=== PATIENT | female | born 1990 | race Caucasian/White ===

== ENCOUNTER → 2017-11-29 | Outpatient (CLI) | payer MEDICAID ==
[~2017-11-29] MED LIST: BUPR-197 PO; FERR324T4 PO; IBUP600 PO; LABE100 PO; LORA10TA7 PO; MEDR4PAK3 PO
== END ==
LOC: HPND 12:15
PROVIDERS: ATTEND Family Medicine
DX: O99.211 Obesity complicating pregnancy, first trimester (principal); E66.01 Morbid (severe) obesity due to excess calories; Z68.41 Body mass index [BMI] 40.0-44.9, adult
CPT/HCPCS: 76801

== ENCOUNTER → 2018-01-27 | Outpatient (CLI) | payer MEDICAID | LOC: HPND 10:20 | PROVIDERS: ATTEND Family Medicine | DX: O99.212 Obesity complicating pregnancy, second trimester (principal); E66.01 Morbid (severe) obesity due to excess calories; Z36.2 Encounter for other antenatal screening follow-up | CPT/HCPCS: 76811 ==

== ENCOUNTER → 2018-02-24 | Outpatient (CLI) | DX: O99.212 Obesity complicating pregnancy, second trimester (principal); E66.01 Morbid (severe) obesity due to excess calories; Z68.41 Body mass index [BMI] 40.0-44.9, adult ==

== ENCOUNTER → 2018-03-24 | Outpatient (CLI) | payer MEDICAID | LOC: HPND 09:52 | PROVIDERS: ATTEND Family Medicine | DX: O99.212 Obesity complicating pregnancy, second trimester (principal); E66.01 Morbid (severe) obesity due to excess calories; Z68.41 Body mass index [BMI] 40.0-44.9, adult | CPT/HCPCS: 76816 ==

== ENCOUNTER 2018-05-23 15:58 | Inpatient (IN) ==
[2018-05-23] MEDS ORDERED: Naloxone Inj 0.4 MG/ML Vial IV.PUSH PRN (16:50)
[2018-05-23] MEDS ORDERED: Labetalol HCl Inj 100 MG/20 ML Vial IV.PUSH PRN ×3 (16:50→17:14)
[2018-05-23] MEDS ORDERED: Mag Sulf/Water 4 gm/100 ml 100 ML IV.SIG ONE (16:50)
[2018-05-23] MEDS ORDERED: Labetalol HCl Inj 100 MG/20 ML Vial ONE (16:56)
[2018-05-23] MEDS ORDERED: Citric Acid/Sodium Citrate Liq 30 ML UDC PO SCH (17:00)
--- NOTE | 2018-05-23 17:06 | ED ---
History of Present Illness Primary Care Physician: No Primary Care Physician History of Present Illness: 27 yr G 2 p 1001 at 36 weeks and 1 day gestation with history of preeclampsia in her first that resulted in a that was sent to the ED by her primary care doctor due to hypertension and elevated protein in her urine. She has been receiving care with Dr. Helene Dey. She reports that this was complicated by gestational diabetes controlled with diet and exercise with this. Endorses good movement. She denies leakage of fluid , vaginal bleeding, vaginal discharge. . Weeks Gestation:: 36 Para: 1 : 2 Review of Systems Constitutional: Denies chills, Denies fatigue, Denies fever(s), Denies headache( s), Denies dizziness, Denies recent illness Eyes: Denies change in vision, Denies double vision, Denies blurry vision Cardiovascular: Denies chest pain, Denies fast heart rate, Denies rapid, pounding, or irregular heartbeat, Denies shortness of breath Respiratory: Denies shortness of breath Gastrointestinal: Denies abdominal pain, Denies constipation, Denies loose stools, Denies nausea, Denies vomiting Genitourinary: Denies difficulty starting urination, Denies difficulty urinating , Denies painful urination, Denies urinary frequency, Denies pelvic pain, Denies blood in urine Extremities: Endorses a 2 week history of lower extremity swelling in both legs OB: Endorses positive movement, Denies vaginal discharge or fluid Medications and Allergies Allergies Allergy/AdvReac Type Severity Reaction Status Date / Time No Known Allergies Allergy Unknown none Uncoded 05/23/18 16:33 Exam Vital signs: Vital Signs 05/23/18 16:28 Pulse Rate 125 H Blood Pressure 177/120 H Narrative: GENERAL: Well-nourished, well-developed patient. SKIN: Warm and dry. HEAD: Normocephalic and atraumatic. EYES: No scleral icterus. No injection or drainage. ENT: No nasal drainage noted. Mucous membranes pink. Airway patent. NECK: Supple, trachea midline. No JVD. CARDIOVASCULAR: Regular rate and rhythm without murmurs, gallops, or rubs. RESPIRATORY: Breath sounds equal bilaterally. No accessory muscle use. ABDOMEN/GI: Abdomen obese, soft, non-tender, bowel sounds present, no rebound, no guarding Gravid to 36 weeks size Membranes: Intact Uterine Contractions: None FHT's: Category: 1 Baseline: 140 Reactive: Yes Variability: Moderate Decels: No EXTREMITIES: 2+ pitting edema lower extremities bilaterally that extend up to just below the knees. BACK: Nontender without obvious deformity. No CVA tenderness. NEUROLOGICAL: Awake and alert. Motor and sensory grossly within normal limits. Normal speech. Results - Labs CBC & Chem 7: 05/23/18 16:55 05/23/18 16:55 Assessment and Plan - Diagnosis (1) Pre-eclampsia Code(s): O14.90 - Unspecified pre-eclampsia, unspecified trimester Status: Acute Qualifiers: Trimester: third trimester Qualified Code(s): O14.93 - Unspecified pre- eclampsia, third trimester Plan: 27 yr G 2 p 1001 at 36 weeks and 1 day gestation with history of preeclampsia in her first that resulted in a that was sent to the ED by her primary care doctor due to hypertension and elevated protein in her urine. In the ED the patient had a systolic blood pressure 177 without any severe preeclamptic features. heart tracing is reassuring. Patient currently not experiencing any contractions. -Begin magnesium sulfate -Begin labetalol -Give betamethasone -Frequent neuro checks -Frequent exam in addition of reflexes -Monitor BP -Follow-up with labs -Monitor heart tones and contractions -Routine antepartum care (2) Gestational diabetes Code(s): O24.419 - Gestational diabetes mellitus in , unspecified control Status: Acute Qualifiers: Gestational diabetes mellitus control: diet-controlled Trimester: third trimester Qualified Code(s): O24.410 - Gestational diabetes mellitus in , diet controlled Plan: Patient reports complication just diabetes during this that has been well and exercise. -Monitor her glucose -Insulin sliding scale if necessary (3) Nutrition, metabolism, and development symptoms Code(s): R63.8 - Other symptoms and signs concerning food and fluid intake Status: Acute Plan: Fluids: 150 mL/h of normal saline Electrolytes: Replete as needed Nutrition: NPO - Attending Attestation The exam, history, and the medical decision-making described in the above note were completed with the assistance of the resident physician. I reviewed and agree with the findings presented. I attest that I had a [id number] encounter with the patient on the same day, and personally performed and documented my assessment and findings in the medical record. Discharge Plan - Physicians Team ED Provider: Rocio Jordan Primary Care Provider: Primary Berta Perez
--- NOTE | 2018-05-23 17:22 | P.HPOB ---
History of Present Illness Primary Care Physician: No Primary Care Physician History of Present Illness: 27 yr G 2 p 1001 at 36 weeks and 1 day gestation with history of preeclampsia in her first that resulted in a that was sent to the ED by her primary care doctor due to hypertension and elevated protein in her urine. She has been receiving care with Dr. Helene Dey. She reports that this was complicated by gestational diabetes controlled with diet and exercise with this. Endorses good movement. She denies leakage of fluid , vaginal bleeding, vaginal discharge. OB Hx: First delivery complicated by preeclampsia by at 38 weeks PM Hx: Preeclampsia, and gestational diabetes controlled with diet and exercise , seasonal allergies Surgical Hx: Meds intact, aspirin, vitamins, Tylenol daily Family Hx: Maternal grandmother breast cancer Mother ovarian cancer, hep C, hypertension, and kidney stones Maternal aunt ovarian cancer Paternal grandfather lung cancer Paternal grandmother diabetes, breast cancer and hypertension Allergies: See general Weeks Gestation:: 36 (+1 day) Para: 1 : 2 Total # of Miscarriage(s): 0 - Inpatient Certification I certify that the inpatient services were ordered in accordance with Medicare regulations governing the order. This includes certification that hospital inpatient services are reasonable and necessary and in the case of services not specified as inpatient-only under 42 CFR 419.22(n), that they are appropriately provided as inpatient services in accordance to with the 2-midnight benchmark under 43 CFR 412.3(e) Estimated Total Length of Stay (Days): 3 Plans for Post Hospital Care: Home Review of Systems Constitutional: Denies chills, Denies fatigue, Denies fever(s), Denies headache( s), Denies dizziness, Denies recent illness Eyes: Denies change in vision, Denies double vision, Denies blurry vision Cardiovascular: Denies chest pain, Denies fast heart rate, Denies rapid, pounding, or irregular heartbeat, Denies shortness of breath Respiratory: Denies shortness of breath Gastrointestinal: Denies abdominal pain, Denies constipation, Denies loose stools, Denies nausea, Denies vomiting Genitourinary: Denies difficulty starting urination, Denies difficulty urinating , Denies painful urination, Denies urinary frequency, Denies pelvic pain, Denies blood in urine Extremities: Endorses a 2 week history of lower extremity swelling in both legs OB: Endorses positive movement, Denies vaginal discharge or fluid Medications and Allergies Allergies Allergy/AdvReac Type Severity Reaction Status Date / Time No Known Allergies Allergy Verified 05/23/18 18:53 Home Medications Medication Instructions Recorded Confirmed Type PNV cmb#95-ferrous fumarate-FA 1 tab PO DAILY 05/23/18 05/23/18 History [] aspirin [Aspirin Low Dose] 81 mg PO DAILY 05/23/18 05/23/18 History cetirizine [Zyrtec] 10 mg PO DAILY 05/23/18 05/23/18 History Active Medications: Active Medications Betamethasone Acet/Betameth SodPhos (Celestone Soluspan Inj) 12 mg IM Q24H GREG Stop: 05/24/18 17:01 Calcium Gluconate (Calcium Gluconate Inj) 1 gm IV.PUSH PRN PRN PRN Reason: Magnesium toxicity Citric Acid/Sodium Citrate (Sodium Citrate/Citric Acid Liq) 30 ml PO [employer] GREG Stop: 05/27/18 16:59 Lactated Ringer's (Lr 1000 Ml Inj) 1,000 mls @ 125 mls/hr IV.CONT .Q8H GREG Lactated Ringer's (Lr 1000 Ml Inj) 1,000 mls @ 3,000 mls/hr IV.SIG UNSCH PRN PRN Reason: compromise or epidural Lactated Ringer's (Lr 1000 Ml Inj) 1,000 mls @ 75 mls/hr IV.CONT .Q28Q30L [facility] Magnesium Sulfate (Magnesium Sulfate/Water 40 Gm/1000 Ml Premix) 40 gm in 1, 000 mls @ 50 mls/hr IV.CONT Q24H GREG Labetalol HCl (Trandate Inj) 20 mg IV.PUSH NOW PRN PRN Reason: SEE LABEL COMMENTS Labetalol HCl (Trandate Inj) 40 mg IV.PUSH NOW PRN PRN Reason: SEE LABEL COMMENTS Labetalol HCl (Trandate Inj) 80 mg IV.PUSH NOW PRN PRN Reason: SEE LABEL COMMENTS Naloxone HCl (Narcan Inj) 0.1 mg IV.PUSH Q2M PRN PRN Reason: for opiate reversal Ondansetron HCl (Zofran Inj) 4 mg IV.PUSH Q6H PRN PRN Reason: NAUSEA OR VOMITING Sodium Chloride (Ns Flush) 2 ml IV.FLUSH BID GREG Sodium Chloride (Ns Flush) 2 ml IV.FLUSH PRN PRN PRN Reason: FLUSH AFTER USING IV ACCESS Exam Vital signs: Vital Signs 05/23/18 16:28 05/23/18 16:46 Pulse Rate 125 H 112 H Blood Pressure 177/120 H 195/116 H Narrative: GENERAL: Well-nourished, well-developed patient. SKIN: Warm and dry. HEAD: Normocephalic and atraumatic. EYES: No scleral icterus. No injection or drainage. ENT: No nasal drainage noted. Mucous membranes pink. Airway patent. NECK: Supple, trachea midline. No JVD. CARDIOVASCULAR: Regular rate and rhythm without murmurs, gallops, or rubs. RESPIRATORY: Breath sounds equal bilaterally. No accessory muscle use. ABDOMEN/GI: Abdomen obese, soft, non-tender, bowel sounds present, no rebound, no guarding Gravid to 36 weeks size Membranes: Intact Uterine Contractions: None FHT's: Category: 1 Baseline: 140 Reactive: Yes Variability: Moderate Decels: No EXTREMITIES: 2+ pitting edema lower extremities bilaterally that extend up to just below the knees. BACK: Nontender without obvious deformity. No CVA tenderness. NEUROLOGICAL: Awake and alert. Motor and sensory grossly within normal limits. Normal speech. Results - Labs CBC & Chem 7: 05/23/18 16:55 05/23/18 16:55 Caprini VTE Risk Assessment Caprini VTE Risk Assessment: No/Low Risk (score <= 1) Caprini Risk Assessment Model: Point Value = 1 Point Value = 2 Point Value = 3 Point Value = 5 Age 41-60 Minor surgery BMI > 25 kg/m2 Swollen legs Varicose veins or History of unexplained or recurrent spontaneous Oral contraceptives or hormone replacement Sepsis (< 1 month) Serious lung disease, including pneumonia (< 1 month) Abnormal pulmonary function Acute myocardial infarction Congestive heart failure (< 1 month) History of inflammatory bowel disease Medical patient at bed rest Age 61-74 Arthroscopic surgery Major open surgery (> 45 min) Laparoscopic surgery (> 45 min) Malignancy Confined to bed (> 72 hours) Immobilizing plaster cast Central venous access Age >= 75 History of VTE Family history of VTE Factor V Leiden Prothrombin [id number] Lupus anticoagulant Anticardiolipin antibodies Elevated serum homocysteine Heparin-induced thrombocytopenia Other congenital or acquired thrombophilia Stroke (< 1 month) Elective arthroplasty Hip, pelvis, or leg fracture Acute spinal cord injury (< 1 month) Prophylaxis Regimen: Total Risk Factor Score Risk Level Prophylaxis Regimen 0-1 Low Early ambulation 2 Moderate Order ONE of the following: *Sequential Compression Device (SCD) *Heparin 5000 units SQ BID 3-4 Higher Order ONE of the following medications: *Heparin 5000 units SQ TID *Enoxaparin/Lovenox 40 mg SQ daily (WT < 150 kg, CrCl > 30 mL/min) *Enoxaparin/Lovenox 30 mg SQ daily (WT < 150 kg, CrCl > 10-29 mL/min) *Enoxaparin/Lovenox 30 mg SQ BID (WT < 150 kg, CrCl > 30 mL/min) AND/OR *Sequential Compression Device (SCD) 5 or more Highest Order ONE of the following medications: *Heparin 5000 units SQ TID (Preferred with Epidurals) *Enoxaparin/Lovenox 40 mg SQ daily (WT < 150 kg, CrCl > 30 mL/min) *Enoxaparin/Lovenox 30 mg SQ daily (WT < 150 kg, CrCl > 10-29 mL/min) *Enoxaparin/Lovenox 30 mg SQ BID (WT < 150 kg, CrCl > 30 mL/min) AND *Sequential Compression Device (SCD) Assessment and Plan - Diagnosis (1) Pre-eclampsia Code(s): O14.90 - Unspecified pre-eclampsia, unspecified trimester Status: Acute Plan: 27 yr G 2 p 1001 at 36 weeks and 1 day gestation with history of preeclampsia in her first that resulted in a that was sent to the ED by her primary care doctor due to hypertension and elevated protein in her urine. In the ED the patient had a systolic blood pressure 177 without any severe preeclamptic features. heart tracing is reassuring. Patient currently not experiencing any contractions. -Begin magnesium sulfate -Begin labetalol -Give betamethasone -Frequent neuro checks -Frequent exam in addition of reflexes -Monitor BP -Follow-up with labs -Monitor heart tones and contractions -Routine antepartum care (2) Gestational diabetes Code(s): O24.419 - Gestational diabetes mellitus in , unspecified control Status: Acute Plan: Patient reports complication just diabetes during this that has been well and exercise. -Monitor her glucose -Insulin sliding scale if necessary (3) Nutrition, metabolism, and development symptoms Code(s): R63.8 - Other symptoms and signs concerning food and fluid intake Status: Acute Plan: Fluids: 150 mL/h of normal saline Electrolytes: Replete as needed Nutrition: NPO - Attending Attestation The exam, history, and the medical decision-making described in the above note were completed with the assistance of the resident physician. I reviewed and agree with the findings presented. I attest that I had a [id number] encounter with the patient on the same day, and personally performed and documented my assessment and findings in the medical record. (1) Pre-eclampsia Qualifiers: Trimester: third trimester Qualified Code(s): O14.93 - Unspecified pre- eclampsia, third trimester (2) Gestational diabetes Qualifiers: Gestational diabetes mellitus control: diet-controlled Trimester: third trimester Qualified Code(s): O24.410 - Gestational diabetes mellitus in , diet controlled
[2018-05-23 17:27] LABS: Baso # (Auto) 0.1 th/mm3 (0.0-0.2); Baso % (Auto) 0.5 % (0.0-2.0); Eos % (Auto) 0.5 % (0.0-4.0); Lymph # (Auto) 1.6 th/mm3 (1.0-4.8); Lymph % (Auto) 14.9 % (9.0-44.0); Mean Corpuscular HGB Conc 34.4 % (32.0-36.0); Mean Corpuscular Hemoglobin 28.3 pg (27.0-34.0); Mean Corpuscular Volume 82.4 fL (80.0-100.0); Mean Platelet Volume 7.7 fL (7.0-11.0); Mono # (Auto) 0.8 th/mm3 (0.0-0.9); Mono % (Auto) 7.6 % (0.0-8.0); Neut # (Auto) 8.3 th/mm3 (1.8-7.7); Neut % (Auto) 76.5 % (16.0-70.0); Platelet Count 287 th/mm3 (150-450); Red Blood Count 4.24 mil/mm3 (4.00-5.30); Red Cell Distribution Width 13.5 % (11.6-17.2); White Blood Count 10.8 th/mm3 (4.0-11.0)
[2018-05-23] MEDS: Mag Sulf/Water 40 gm/1000 ml 40 GM/1,000 ML BAG IV.CONT SCH (17:40)
[2018-05-23] MEDS: Betamethasone Sod Phos/Acetate Inj 30 MG/5 ML Vial IM SCH (18:00)
[2018-05-23 18:06] LABS: Albumin 2.3 g/dL (3.4-5.0); Anion Gap 9 meq/L (5-15); Aspartate Aminotransferase 23 U/L (15-37); Blood Urea Nitrogen 11 mg/dL (7-18); Carbon Dioxide 20.1 meq/L (21.0-32.0); Chloride 112 meq/L (98-107); Glomerular Filtration Rate Greater Than 89 mL/min (>89); Glucose,Random 99 mg/dL (74-106); Potassium 4.3 meq/L (3.5-5.1); Sodium 141 meq/L (136-145)
[2018-05-23 18:10] LABS: Alanine Aminotransferase 26 U/L (10-53); Alkaline Phosphatase 163 U/L (45-117); Total Protein 6.3 g/dL (6.4-8.2); Uric Acid 5.3 mg/dl (2.6-6.0)
--- NOTE | 2018-05-23 18:32 | P.OBANTE ---
Subjective Interval History: Interval Updates: 27 year old at 36/1 with history of prior CS. She is my continuity patient with obstetrical history significant for previous C section and preE in her first as well as gestational diabetes (not on meds or insulin). She was admitted after elevated outpatient BP (150/100) and 24hr urine protein (=390 ) found on evaluation. She will remained admitted for continued management of pre-eclampsia with severe features. At home, she was on aspirin 81mg daily since approximately 17 weeks gestation with outpatient BPs increasing over the last few weeks. Since admission, patient has received a total of 140mg of labetalol IV (20mg, then 40mg, then 60mg) with SBP 136-196 since arrival. She most recently had BP of 136/80 with initiation of magnesium loading dose. She is status post first dose of betamethasone IM. Currently, patient complains of IV site pain with magnesium infusion but otherwise has no complaints. Tracing is noted to be Category 1 at this time: baseline rate 140, accels to 160s, no decels noted, moderately reactive. There are no contractions noted. Exam notable for marked edema but is otherwise unremarkable. Plan is as otherwise documented, but summarized as followed: -Admit for pre-eclampsia with severe features -Given gestational age of 36/1, hopeful to extend at least 48 but delivery timing depends on BP control, maternal status, and status -Pre-eclampsia labs ordered and CMP pending, CBC unremarkable -Magnesium gtt for neuroprotection and BP control. Protocol to include Vidal and neuro checks initiated. -Betamethasone x 2 expected (first dose 05/23) -GDM: will check fasting and 2hr postprandial if eating, CMP shows glucose 99 -NPO while on magnesium -Anticipate transition to antepartum suite tonight if BP remains controlled -Repeat labs in AM -Further planning pending clinical course Patient was discussed with Dr. Jordan, OB attending, who agrees with plan of care. Objective Vital Signs and I&O: Vital Signs 05/23/18 16:28 05/23/18 16:46 05/23/18 17:10 Pulse Rate 125 H 112 H 109 H Blood Pressure 177/120 H 195/116 H 167/97 H 05/23/18 17:16 Pulse Rate 105 H Blood Pressure 152/93 H Lab and Micro Results: Laboratory Results - last 24 hr 05/23/18 05/23/18 16:55 16:55 WBC 10.8 RBC 4.24 Hgb 12.0 Hct 35.0 MCV 82.4 MCH 28.3 MCHC 34.4 RDW 13.5 Plt Count 287 MPV 7.7 Neut % (Auto) 76.5 H Lymph % (Auto) 14.9 Coleman % (Auto) 7.6 Eos % (Auto) 0.5 Baso % (Auto) 0.5 Neut # (Auto) 8.3 H Lymph # (Auto) 1.6 Coleman # (Auto) 0.8 Eos # (Auto) 0.0 Baso # (Auto) 0.1 WBC Differential . Differential Comment Auto diff final Sodium 141 Potassium 4.3 Chloride 112 H Carbon Dioxide 20.1 L Anion Gap 9 BUN 11 Creatinine 0.70 Estimated GFR Greater than 89 Random Glucose 99 Calcium 9.0 AST 23 Albumin 2.3 L Assessment and Plan - Diagnosis (1) Pre-eclampsia Code(s): O14.90 - Unspecified pre-eclampsia, unspecified trimester Status: Acute (2) Gestational diabetes Code(s): O24.419 - Gestational diabetes mellitus in , unspecified control Status: Acute (3) Nutrition, metabolism, and development symptoms Code(s): R63.8 - Other symptoms and signs concerning food and fluid intake Status: Acute - Attending Attestation The exam, history, and the medical decision-making described in the above note were completed with the assistance of the resident physician. I reviewed and agree with the findings presented. I attest that I had a [id number] encounter with the patient on the same day, and personally performed and documented my assessment and findings in the medical record. (1) Pre-eclampsia Qualifiers: Trimester: third trimester Qualified Code(s): O14.93 - Unspecified pre- eclampsia, third trimester (2) Gestational diabetes Qualifiers: Gestational diabetes mellitus control: diet-controlled Trimester: third trimester Qualified Code(s): O24.410 - Gestational diabetes mellitus in , diet controlled
[2018-05-23] MEDS ORDERED: Acetaminophen 325 MG Supp RECTAL PRN (20:12)
[2018-05-23 20:33] LABS: Bacteria,Urine Rare /hpf; Bilirubin,Urine Negative (Negative); Calcium Oxalate Crystals,Urine Rare /hpf; Clarity,Urine Cloudy (Clear); Color,Urine Yellow (Yellw/Straw); Glucose,Urine (UA) Negative (Negative); Leukocyte Esterase,Urine Trace (Negative); Mucus,Urine Few /lpf (Occasional); Nitrite,Urine Negative (Negative); Specific Gravity,Urine 1.026 (1.002-1.035); Squamous Epithelial Cell,Urine 14 /hpf (0-5)
[2018-05-23 20:37] LABS: Amphetamine Urine With Conf Neg (Neg); Benzodiazepine Urine With Conf Neg (Neg)
[2018-05-23] MEDS ORDERED: Acetaminophen 325 MG Tablet PO PRN (21:29)
[2018-05-24] MEDS: Betamethasone Sod Phos/Acetate Inj 30 MG/5 ML Vial IM SCH ×2 (05:18→18:54)
[2018-05-24 05:55] LABS: Baso % (Auto) 0.1 % (0.0-2.0); Hematocrit 34.7 % (35.0-46.0); Hemoglobin 11.7 gm/dL (11.6-15.3); Lymph % (Auto) 7.8 % (9.0-44.0); Mean Corpuscular HGB Conc 33.9 % (32.0-36.0); Mean Corpuscular Hemoglobin 28.4 pg (27.0-34.0); Mean Corpuscular Volume 83.8 fL (80.0-100.0); Mean Platelet Volume 7.8 fL (7.0-11.0); Mono # (Auto) 0.3 th/mm3 (0.0-0.9); Mono % (Auto) 2.2 % (0.0-8.0); Neut # (Auto) 11.8 th/mm3 (1.8-7.7); Neut % (Auto) 89.9 % (16.0-70.0); Platelet Count 296 th/mm3 (150-450); Red Blood Count 4.14 mil/mm3 (4.00-5.30); Red Cell Distribution Width 13.6 % (11.6-17.2); White Blood Count 13.1 th/mm3 (4.0-11.0)
[2018-05-24 06:09] LABS: Activated Partial Thrombo Time 25.5 sec (24.3-30.1)
[2018-05-24 06:21] LABS: Alanine Aminotransferase 28 U/L (10-53); Albumin 2.3 g/dL (3.4-5.0); Alkaline Phosphatase 169 U/L (45-117); Anion Gap 11 meq/L (5-15); Aspartate Aminotransferase 17 U/L (15-37); Blood Urea Nitrogen 11 mg/dL (7-18); Calcium 8.2 mg/dL (8.5-10.1); Carbon Dioxide 18.7 meq/L (21.0-32.0); Chloride 107 meq/L (98-107); Glomerular Filtration Rate Greater Than 89 mL/min (>89); Glucose,Random 134 mg/dL (74-106); Potassium 4.5 meq/L (3.5-5.1); Sodium 137 meq/L (136-145); Total Protein 6.8 g/dL (6.4-8.2)
--- NOTE | 2018-05-24 09:49 | P.OBANTE ---
Subjective Interval History: Patient is a 27-year-old G 2 P 1 at 36 weeks and 2-day gestation who was admitted for preeclampsia and currently being treated with magnesium sulfate. Patient was seen at bedside this morning. Patient had no acute events overnight. Patient reports no bleeding or leakage of fluids and good movement. Patient currently has a Vidal catheter in place but is able to defecate without issue. Patient denies any changes in vision, dizziness, spots in visual field chest pain, shortness of breath, nausea, vomiting, fever, chills , calf pain, or new lower extremity swelling. Objective Vital Signs and I&O: Vital Signs 05/23/18 16:28 05/23/18 16:46 05/23/18 17:10 Temperature Pulse Rate 125 H 112 H 109 H Respiratory Rate Blood Pressure 177/120 H 195/116 H 167/97 H 05/23/18 17:16 05/23/18 17:30 05/23/18 18:25 Temperature Pulse Rate 105 H 107 H Respiratory Rate 19 Blood Pressure 152/93 H 170/105 H 05/23/18 18:30 05/23/18 18:55 05/23/18 19:01 Temperature 97.9 F Pulse Rate 98 H 97 H Respiratory Rate 18 Blood Pressure 147/79 H 140/80 05/23/18 19:42 05/23/18 20:15 05/23/18 20:31 Temperature Pulse Rate 95 H Respiratory Rate 20 20 Blood Pressure 145/58 H 144/77 H 05/23/18 21:15 05/23/18 21:31 05/23/18 21:45 Temperature Pulse Rate Respiratory Rate 18 18 Blood Pressure 152/87 H 05/23/18 21:55 05/23/18 22:01 05/23/18 22:16 Temperature Pulse Rate 96 H 99 H 96 H Respiratory Rate 18 Blood Pressure 152/72 H 05/23/18 22:40 05/23/18 22:41 05/23/18 23:01 Temperature 98.7 F Pulse Rate 94 H Respiratory Rate Blood Pressure 156/81 H 05/23/18 23:26 05/23/18 23:55 05/24/18 00:01 Temperature Pulse Rate 100 H Respiratory Rate 18 Blood Pressure 155/86 H 05/24/18 00:35 05/24/18 00:38 05/24/18 02:01 Temperature Pulse Rate 95 H Respiratory Rate 18 Blood Pressure 149/96 H 05/24/18 03:00 05/24/18 04:01 05/24/18 04:04 Temperature 98.4 F Pulse Rate 93 H Respiratory Rate 18 Blood Pressure 152/77 H 05/24/18 04:45 05/24/18 05:21 05/24/18 05:28 Temperature Pulse Rate 91 H 95 H Respiratory Rate 18 18 Blood Pressure 167/88 H 05/24/18 05:55 05/24/18 06:41 05/24/18 06:55 Temperature Pulse Rate 92 H 90 Respiratory Rate 18 Blood Pressure 136/77 05/24/18 07:15 05/24/18 07:16 Temperature 97.7 F Pulse Rate 96 H Respiratory Rate 17 Blood Pressure 148/91 H Intake & Output 05/23/18 05/24/18 05/24/18 18:59 06:59 18:59 Intake Total 1000 / 1000 Balance 1000 / 1000 Weight 2.438 kg Intake: IV 1000 / 1000 LR 1000 mL Inj 1,000 ML @ 75 1000 / 1000 mls/hr IV.CONT .[id number] [facility] Rx# :[id number] Other: Weight On Admission 143.335 kg Lab and Micro Results: Laboratory Results - last 24 hr 05/23/18 05/23/18 05/23/18 16:15 16:15 16:55 WBC 10.8 RBC 4.24 Hgb 12.0 Hct 35.0 MCV 82.4 MCH 28.3 MCHC 34.4 RDW 13.5 Plt Count 287 MPV 7.7 Neut % (Auto) 76.5 H Lymph % (Auto) 14.9 [place] % (Auto) 7.6 Eos % (Auto) 0.5 Baso % (Auto) 0.5 Neut # (Auto) 8.3 H Lymph # (Auto) 1.6 [place] # (Auto) 0.8 Eos # (Auto) 0.0 Baso # (Auto) 0.1 WBC Differential . Differential Comment Auto diff final PT INR APTT Sodium Potassium Chloride Carbon Dioxide Anion Gap BUN Creatinine Estimated GFR Random Glucose Uric Acid Calcium Total Bilirubin AST ALT Alkaline Phosphatase Total Protein Albumin Urine Color Yellow Urine Clarity Cloudy H Urine pH 5.0 Ur Specific Warren 1.026 Urine Protein 30 H Urine Glucose (UA) Negative Urine Ketones Negative Urine Occult Blood Negative Urine Nitrate Negative Urine Bilirubin Negative Urine Urobilinogen 2.0 H Ur Leukocyte Esterase Trace H Urine RBC 2 Urine WBC 9 H Ur Squamous Epith Cells 14 Calcium Oxalate Crystal Rare H Urine Bacteria Rare H Urine Mucus Few H Micro UA Comment Culture indicated Urine Culture Comments Culture indicated Urine Opiates Screen Neg Ur Barbiturates Screen Neg Ur Amphetamine Screen Neg U Benzodiazepines Scrn Neg Urine Cocaine Screen Neg U Cannabinoids Screen Neg Blood Type 05/23/18 05/23/18 05/23/18 16:55 16:55 16:55 WBC RBC Hgb Hct MCV MCH MCHC RDW Plt Count MPV Neut % (Auto) Lymph % (Auto) [place] % (Auto) Eos % (Auto) Baso % (Auto) Neut # (Auto) Lymph # (Auto) [place] # (Auto) Eos # (Auto) Baso # (Auto) WBC Differential Differential Comment PT Cancelled INR Cancelled APTT Cancelled Sodium 141 Potassium 4.3 Chloride 112 H Carbon Dioxide 20.1 L Anion Gap 9 BUN 11 Creatinine 0.70 Estimated GFR Greater than 89 Random Glucose 99 Uric Acid 5.3 Calcium 9.0 Total Bilirubin 0.2 AST 23 ALT 26 Alkaline Phosphatase 163 H Total Protein 6.3 L Albumin 2.3 L Urine Color Urine Clarity Urine pH Ur Specific Warren Urine Protein Urine Glucose (UA) Urine Ketones Urine Occult Blood Urine Nitrate Urine Bilirubin Urine Urobilinogen Ur Leukocyte Esterase Urine RBC Urine WBC Ur Squamous Epith Cells Calcium Oxalate Crystal Urine Bacteria Urine Mucus Micro UA Comment Urine Culture Comments Urine Opiates Screen Ur Barbiturates Screen Ur Amphetamine Screen U Benzodiazepines Scrn Urine Cocaine Screen U Cannabinoids Screen Blood Type B Positive 05/24/18 05/24/18 05/24/18 04:50 04:50 04:50 WBC 13.1 H RBC 4.14 Hgb 11.7 Hct 34.7 L MCV 83.8 MCH 28.4 MCHC 33.9 RDW 13.6 Plt Count 296 MPV 7.8 Neut % (Auto) 89.9 H Lymph % (Auto) 7.8 L [place] % (Auto) 2.2 Eos % (Auto) 0.0 Baso % (Auto) 0.1 Neut # (Auto) 11.8 H Lymph # (Auto) 1.0 [place] # (Auto) 0.3 Eos # (Auto) 0.0 Baso # (Auto) 0.0 WBC Differential . Differential Comment Auto diff final PT 10.0 INR 1.0 APTT 25.5 Sodium 137 Potassium 4.5 Chloride 107 Carbon Dioxide 18.7 L Anion Gap 11 BUN 11 Creatinine 0.67 Estimated GFR Greater than 89 Random Glucose 134 H Uric Acid Calcium 8.2 L D Total Bilirubin 0.3 AST 17 ALT 28 Alkaline Phosphatase 169 H Total Protein 6.8 Albumin 2.3 L Urine Color Urine Clarity Urine pH Ur Specific [place] Urine Protein Urine Glucose (UA) Urine Ketones Urine Occult Blood Urine Nitrate Urine Bilirubin Urine Urobilinogen Ur Leukocyte Esterase Urine RBC Urine WBC Ur Squamous Epith Cells Calcium Oxalate Crystal Urine Bacteria Urine Mucus Micro UA Comment Urine Culture Comments Urine Opiates Screen Ur Barbiturates Screen Ur Amphetamine Screen U Benzodiazepines Scrn Urine Cocaine Screen U Cannabinoids Screen Blood Type Physical Exam: GENERAL: Obese, well-developed patient. CARDIOVASCULAR: Regular rate and rhythm without murmurs, gallops, or rubs. RESPIRATORY: Breath sounds equal bilaterally. No accessory muscle use. ABDOMEN/GI: Abdomen soft, non-tender, gravid GENITOURINARY: FHT's: Category: 1 Baseline: 120 Reactive: Yes Variability: Moderate Decels: No EXTREMITIES: Patient's previously pitting edema has improved she currently has nonpitting edema that extends midway up the lower extremities bilaterally, without signs of DVT. Prepatellar reflexes 2+ on left side 1+ on right. Assessment and Plan - Diagnosis (1) Pre-eclampsia Code(s): O14.90 - Unspecified pre-eclampsia, unspecified trimester Status: Acute Plan: 27 yr G 2 p 1001 at 36 weeks and 1 day gestation with history of preeclampsia in her first that resulted in a that was sent to the ED by her primary care doctor due to hypertension and elevated protein in her urine. In the ED the patient had a systolic blood pressure 177 without any severe preeclamptic features and has been in the 140 systolic overnight. heart tracing continues to be reassuring. Patient reports "small" contractions every 20-30 minutes. -Patient to undergo in the next 1-2 days -Continue magnesium sulfate -Continue hypertensive management -Continue with next dose of betamethasone -Frequent neuro checks -Frequent exam in addition of reflexes -Monitor BP -Follow-up with labs -Monitor heart tones and contractions -Routine antepartum care (2) Gestational diabetes Code(s): O24.419 - Gestational diabetes mellitus in , unspecified control Status: Acute Plan: Patient reports complication just diabetes during this that has been well and exercise. -Monitor her glucose -Insulin sliding scale if necessary (3) Nutrition, metabolism, and development symptoms Code(s): R63.8 - Other symptoms and signs concerning food and fluid intake Status: Acute Plan: Fluids: 150 mL/h of normal saline Electrolytes: Replete as needed Nutrition: NPO (1) Pre-eclampsia Qualifiers: Trimester: third trimester Qualified Code(s): O14.93 - Unspecified pre- eclampsia, third trimester (2) Gestational diabetes Qualifiers: Gestational diabetes mellitus control: diet-controlled Trimester: third trimester Qualified Code(s): O24.410 - Gestational diabetes mellitus in , diet controlled
[2018-05-24] MEDS ORDERED: Citric Acid/Sodium Citrate Liq 30 ML UDC PO SCH (10:45)
[2018-05-24] MEDS ORDERED: ceFAZolin Inj 2,000 MG in Sodium Chlor 0.9% Inj 80 ML IV.SIG SCH (11:00)
[2018-05-24] MEDS ORDERED: Phenylephrine/NS 1000 MCG/10ML Syringe IV.PUSH ONE (12:00)
[2018-05-24] MEDS ORDERED: Ketorolac Inj 30 MG/ML (IVP) Vial IV.PUSH ONE (12:00)
[2018-05-24] MEDS: Mag Sulf/Water 40 gm/1000 ml 40 GM/1,000 ML BAG IV.CONT SCH ×2 (12:43→18:54)
[2018-05-24 12:44] LABS: Baso % (Auto) 0.1 % (0.0-2.0); Hematocrit 32.8 % (35.0-46.0); Hemoglobin 11.6 gm/dL (11.6-15.3); Lymph % (Auto) 6.9 % (9.0-44.0); Mean Corpuscular HGB Conc 35.3 % (32.0-36.0); Mean Corpuscular Hemoglobin 29.7 pg (27.0-34.0); Mean Platelet Volume 7.7 fL (7.0-11.0); Mono # (Auto) 0.3 th/mm3 (0.0-0.9); Mono % (Auto) 2.4 % (0.0-8.0); Neut # (Auto) 12.7 th/mm3 (1.8-7.7); Neut % (Auto) 90.6 % (16.0-70.0); Platelet Count 300 th/mm3 (150-450); Red Blood Count 3.91 mil/mm3 (4.00-5.30)
[2018-05-24] MEDS ORDERED: Simethicone 80 MG Chew Tablet PO PRN (14:53)
[2018-05-24] MEDS ORDERED: Oxytocin 30 Units/500ml Premix 30 UNITS/500 ML BAG IV.SIG ONE (14:53)
--- NOTE | 2018-05-24 16:24 | P.OP ---
- Preoperative Diagnosis (1) induced hypertension, antepartum (2) Previous section complicating (3) Breech presentation - Postoperative Diagnosis (1) induced hypertension, delivered, current hospitalization (2) Breech presentation (3) Previous section complicating Date of procedure: 05/24/18 Implants: Repeat low transverse section Anesthesia: spinal Surgeon: Edson Roberts MD [place] Fishing Hand: Yesi Palafox Estimated blood loss (mL): 500 IV fluids (mL): 1,000 Urine output (mL): 100 Pathology: none sent Operation and Findings: Patient is 36 week previous now for repeat section due to - induced hypertension requiring IV antihypertensives, she is a previous , the baby is in a breech presentation now. Patient was taken the operating room placed supine position operating table after adequate spinal anesthesia she is prepped and draped for abdominal surgery a pannus retractor was used to it he simply pulled back pannus to allow surgical approach the lower uterine segment area previous Pfannenstiel incision was excised out of cast way. Incision carried the fascia sharply the fascia dissected laterally off the rectus muscle. The peritoneal cavity entered sharply. The incision extended superior and inferiorly. And then the incision stretched open to allow room for baby. Visceral peritoneum mari of lower uterine segment placed on the bladder blade. A transverse hysterotomy was made extended bluntly bilaterally and copious clear fluid noted. Baby was delivered from a [place] breech presentation without difficulty. Delivery is 1:48 PM baby's weight 3035 g, Apgars 7/7 and was a male infant. Delayed cord clamping done cord blood was obtained. Placenta manually extracted uterus exteriorized all remnants of membranes forceps. The hysterotomy closed in a running layer of 0 chromic followed by imbricating suture same hemostasis achieved with a stick tie. The bladder was reapproximated with a running 3-0 Vicryl. The uterus elevated blood suctioned cul-de-sac gutters and the uterus noted to have normal ovaries and tubes. The uterus replaced the peritoneal cavity. The parietal peritoneum was grasped with hemostats and a 2-0 Vicryl used to close the parietal peritoneum. The rectus muscle reapproximated with stick ties of chromic and Vicryl. And the fascia closed in a running 0 Vicryl subcutaneous tissues closed with 3-0 catgut suture in a running stitch and the skin closed with 3-0 Monocryl subcuticular stitch. The 7 day silver dressing was then applied so that the incision under the pannus could stay dry and decrease his risk for infection. Estimate blood loss 500 cc were no complications sponge and needle correct 2 and the patient recovery in stable condition.
[2018-05-24] MEDS ORDERED: Naloxone Inj 0.4 MG/ML Vial IV.PUSH PRN ×2 (16:26→17:23)
[2018-05-24] MEDS ORDERED: Morphine Inj 30 MG/30 ML PCA.VIAL PCA PRN (16:55)
[2018-05-24] MEDS ORDERED: Labetalol HCl Inj 100 MG/20 ML Vial IV.PUSH ONE (17:40)
[2018-05-24] MEDS: Morphine Inj 30 MG/30 ML PCA.VIAL PCA PRN (17:54)
[2018-05-24] MEDS ORDERED: Oxytocin 30 Units/500ml Premix 30 UNITS/500 ML BAG IV.SIG PRN (19:53)
[2018-05-24] MEDS: ceFAZolin Inj 2,000 MG in Sodium Chlor 0.9% Inj 80 ML IV.SIG SCH (21:32)
[2018-05-25] MEDS: ceFAZolin Inj 2,000 MG in Sodium Chlor 0.9% Inj 80 ML IV.SIG SCH (05:27)
[2018-05-25 05:57] LABS: Baso % (Auto) 0.1 % (0.0-2.0); Hematocrit 30.1 % (35.0-46.0); Hemoglobin 10.1 gm/dL (11.6-15.3); Lymph # (Auto) 1.5 th/mm3 (1.0-4.8); Lymph % (Auto) 9.4 % (9.0-44.0); Mean Corpuscular HGB Conc 33.7 % (32.0-36.0); Mean Corpuscular Hemoglobin 28.4 pg (27.0-34.0); Mean Corpuscular Volume 84.3 fL (80.0-100.0); Mean Platelet Volume 7.7 fL (7.0-11.0); Mono # (Auto) 1.1 th/mm3 (0.0-0.9); Mono % (Auto) 7.1 % (0.0-8.0); Neut # (Auto) 13.2 th/mm3 (1.8-7.7); Neut % (Auto) 83.4 % (16.0-70.0); Platelet Count 262 th/mm3 (150-450); Red Blood Count 3.57 mil/mm3 (4.00-5.30); Red Cell Distribution Width 13.9 % (11.6-17.2); White Blood Count 15.8 th/mm3 (4.0-11.0)
[2018-05-25] MEDS: Morphine Inj 30 MG/30 ML PCA.VIAL PCA PRN (06:16)
[2018-05-25 06:28] LABS: Alanine Aminotransferase 33 U/L (10-53); Alkaline Phosphatase 138 U/L (45-117); Anion Gap 10 meq/L (5-15); Aspartate Aminotransferase 21 U/L (15-37); Blood Urea Nitrogen 7 mg/dL (7-18); Calcium 6.9 mg/dL (8.5-10.1); Carbon Dioxide 21.4 meq/L (21.0-32.0); Chloride 110 meq/L (98-107); Glomerular Filtration Rate Greater Than 89 mL/min (>89); Glucose,Random 140 mg/dL (74-106); Potassium 4.3 meq/L (3.5-5.1); Sodium 141 meq/L (136-145); Total Protein 5.6 g/dL (6.4-8.2)
--- NOTE | 2018-05-25 07:44 | P.PNOB ---
Subjective Post op day: 1 Interval history: 27 year old who is postoperative day #1 status post repeat low-transverse C section. Afebrile overnight. SBPs 110s-140s over the last 24 hr. Patient continues on magnesium drip at 2g/hr until 2:30p today. Patient denies pain. Incision not draining. Denies dysuria. No breast tenderness. Baby in NICU, and she has attempted pumping. Appetite good on clear liquids. No nausea or vomiting. Vidal in place, and patient has not yet had a bowel movement post- operatively. Ambulating well. Denies calf pain or shortness of breath. Otherwise, she is doing well this morning and has no other concerns. Objective Vital Signs/I&O: Vital Signs 05/24/18 09:55 05/24/18 10:01 05/24/18 11:37 Temperature 97.9 F Pulse Rate 100 H 100 H Respiratory Rate Blood Pressure 159/84 H 148/77 H 05/24/18 11:38 05/24/18 11:40 05/24/18 11:45 Temperature Pulse Rate 103 H 103 H Respiratory Rate 17 Blood Pressure 05/24/18 11:55 05/24/18 12:40 05/24/18 14:56 Temperature 97.8 F Pulse Rate 101 H 102 H 86 Respiratory Rate 17 Blood Pressure 150/83 H 131/65 05/24/18 15:15 05/24/18 15:30 05/24/18 15:45 Temperature 97.6 F Pulse Rate 89 86 85 Respiratory Rate 18 21 20 Blood Pressure 135/75 125/63 139/73 05/24/18 16:40 05/24/18 16:44 05/24/18 16:55 Temperature Pulse Rate 93 H 94 H 90 Respiratory Rate 17 Blood Pressure 156/86 H 05/24/18 17:15 05/24/18 17:36 05/24/18 17:40 Temperature Pulse Rate 95 H 95 H 94 H Respiratory Rate 18 Blood Pressure 162/77 H 05/24/18 17:55 05/24/18 18:25 05/24/18 18:45 Temperature Pulse Rate 94 H 92 H 98 H Respiratory Rate Blood Pressure 148/86 H 05/24/18 18:52 05/24/18 18:55 05/24/18 19:00 Temperature Pulse Rate 98 H 100 H 97 H Respiratory Rate 16 Blood Pressure 162/73 H 05/24/18 19:25 05/24/18 19:32 05/24/18 19:34 Temperature 98.0 F Pulse Rate 96 H 101 H Respiratory Rate 18 Blood Pressure 155/77 H 05/24/18 19:35 05/24/18 20:00 05/24/18 20:01 Temperature Pulse Rate 101 H 101 H 98 H Respiratory Rate Blood Pressure 130/73 05/24/18 20:15 05/24/18 20:30 05/24/18 20:36 Temperature Pulse Rate 100 H 99 H 103 H Respiratory Rate 18 Blood Pressure 05/24/18 20:45 05/24/18 20:50 05/24/18 21:00 Temperature Pulse Rate 103 H 99 H 110 H Respiratory Rate Blood Pressure 128/59 L 05/24/18 21:05 05/24/18 21:28 05/24/18 21:30 Temperature Pulse Rate 100 H 100 H 98 H Respiratory Rate 20 Blood Pressure 05/24/18 21:50 05/24/18 22:00 05/24/18 22:10 Temperature Pulse Rate 100 H 88 96 H Respiratory Rate Blood Pressure 132/65 05/24/18 22:20 05/24/18 22:25 05/24/18 23:05 Temperature 98.0 F Pulse Rate 105 H 97 H 102 H Respiratory Rate 18 Blood Pressure 118/57 L 05/24/18 23:55 05/25/18 00:05 05/25/18 00:16 Temperature Pulse Rate 95 H 83 85 Respiratory Rate 18 Blood Pressure 109/53 L 05/25/18 00:20 05/25/18 00:25 05/25/18 00:45 Temperature Pulse Rate 91 H 97 H 97 H Respiratory Rate Blood Pressure 05/25/18 01:20 05/25/18 01:35 05/25/18 01:50 Temperature Pulse Rate 90 82 81 Respiratory Rate Blood Pressure 112/59 L 05/25/18 01:55 05/25/18 02:00 05/25/18 03:00 Temperature Pulse Rate 92 H 89 80 Respiratory Rate 18 Blood Pressure 117/57 L 116/58 L 05/25/18 03:35 05/25/18 03:40 05/25/18 03:52 Temperature 97.7 F Pulse Rate 83 75 74 Respiratory Rate 18 Blood Pressure 05/25/18 03:55 05/25/18 05:10 05/25/18 05:25 Temperature Pulse Rate 87 71 80 Respiratory Rate Blood Pressure 116/64 135/71 05/25/18 05:28 05/25/18 05:35 05/25/18 06:05 Temperature Pulse Rate 76 78 Respiratory Rate 16 Blood Pressure 137/70 05/25/18 06:25 05/25/18 06:30 05/25/18 07:05 Temperature Pulse Rate 78 69 68 Respiratory Rate 18 Blood Pressure 142/76 H 05/25/18 07:10 Temperature Pulse Rate 81 Respiratory Rate Blood Pressure Intake & Output 05/24/18 05/25/18 05/25/18 18:59 06:59 18:59 Intake Total 1000 / 1000 100 / 100 Balance 1000 / 1000 100 / 100 Intake: IV 1000 / 1000 100 / 100 Magnesium Sulfate/Water 40 gm/ 1000 / 1000 1000 ml Premix 40 gm In 1,000 ml @ 2 GM/HR 50 mls/hr IV.CONT Q24H [facility] Rx#:[id number] Ancef Inj 2,000 MG In NS Inj 80 100 / 100 ML @ 200 mls/hr IV.SIG Q8H [facility] Rx#:[id number] Result Diagrams: 05/25/18 04:58 05/25/18 04:58 Objective Remarks: GENERAL: Well-nourished, well-developed patient. Alert and oriented. CARDIOVASCULAR: Regular rate and rhythm without murmurs, gallops, or rubs. RESPIRATORY: Breath sounds equal bilaterally. No accessory muscle use. ABDOMEN/GI: Abdomen soft, non-tender, bowel sounds present. Incision: Clean, dry and intact. Silver nitrate dressing placed 05/24 clean and dry. Fundus: Firm, non-tender at umbilicus. GENITOURINARY: Light to moderate bleeding reported. NEURO: 1+ patellar reflexes. Normal sensation and spontaneous movement of all 4 extremities. EXTREMITIES: No cyanosis or edema, non-tender, without signs of DVT. Medications and IVs: Active Medications Acetaminophen (Tylenol) 650 mg PO Q6H PRN PRN Reason: H/A Last Admin: 05/23/18 21:34 Dose: 650 mg Calcium Gluconate (Calcium Gluconate Inj) 1 gm IV.PUSH PRN PRN PRN Reason: Magnesium toxicity Citric Acid/Sodium Citrate (Sodium Citrate/Citric Acid Liq) 30 ml PO EGG SETTER [facility] Stop: 05/27/18 16:59 Last Admin: 05/24/18 12:43 Dose: 30 ml Citric Acid/Sodium Citrate (Sodium Citrate/Citric Acid Liq) 30 ml PO EGG SETTER [facility] Stop: 05/28/18 10:44 Diphenhydramine HCl (Benadryl Inj) 25 mg IV.PUSH Q6H PRN PRN Reason: MILD TO MODERATE ITCHING Stop: 05/25/18 16:25 Diphenhydramine HCl (Benadryl) 50 mg PO Q6H PRN PRN Reason: MILD TO MODERATE ITCHING Stop: 05/25/18 16:25 Diphtheria/Pertussis/Tetanus Vacc (Boostrix Vaccine Inj) 0.5 ml IM .ONCE ONE Stop: 05/25/18 16:01 Magnesium Sulfate (Magnesium Sulfate/Water 40 Gm/1000 Ml Premix) 40 gm in 1, 000 mls @ 50 mls/hr IV.CONT Q24H [facility] Last Admin: 05/24/18 18:54 Dose: Not Given Cefazolin Sodium 2,000 mg/ (Sodium Chloride) 100 mls @ 200 mls/hr IV.SIG EGG SETTER [facility] Stop: 05/28/18 10:59 Lactated Ringer's (Lr 1000 Ml Inj) 1,000 mls @ 100 mls/hr IV.CONT .Q10H [facility] Stop: 05/25/18 15:52 Last Admin: 05/25/18 00:23 Dose: 75 mls/hr Oxytocin (Pitocin 30 Units/Ns 500 Ml Premix) 30 units in 500 mls @ 100 mls/hr IV.SIG PRN PRN PRN Reason: Heavy bleeding Stop: 05/25/18 19:52 Morphine Sulfate (Morphine Inj) 30 mg in 30 mls @ 0 mls/hr PRISONER CLASSIFICATION INTERVIEWER UNSCH PRN PRN Reason: per PRISONER CLASSIFICATION INTERVIEWER parameters/ABD.PAIN Last Admin: 05/25/18 06:16 Dose: 0 mls/hr Ketorolac Tromethamine (Toradol Inj) 30 mg IM Q6H PRN PRN Reason: SEE LABEL COMMENTS Stop: 05/29/18 14:52 Labetalol HCl (Trandate Inj) 40 mg IV.PUSH NOW PRN PRN Reason: SEE LABEL COMMENTS Measles/Mumps/Rubella Vaccine Live (M-M-R Ii Vaccine Inj) 0.5 ml SQ .ONCE ONE Stop: 05/25/18 16:01 Miscellaneous Information ([facility] [facility] 1 each OTHER UNSCH PRN PRN Reason: SEE LABEL COMMENTS Stop: 05/25/18 16:25 Miscellaneous Information ([facility] 1 each OTHER UNSCH PRN PRN Reason: SEE LABEL COMMENTS Stop: 05/25/18 16:25 Naloxone HCl (Narcan Inj) 0.1 mg IV.PUSH Q2M PRN PRN Reason: for opiate reversal Naloxone HCl (Narcan Inj) 0.4 mg IV.PUSH UNSCH PRN PRN Reason: SEE LABEL COMMENTS Stop: 05/25/18 16:25 Naloxone HCl (Narcan Inj) 0.4 mg IV.PUSH PRN PRN PRN Reason: Resp rate < 10 Ondansetron HCl (Zofran Inj) 4 mg IV.PUSH Q6H PRN PRN Reason: NAUSEA OR VOMITING Oxycodone/Acetaminophen (Percocet 5/325 Mg) 1 tab PO Q4H PRN PRN Reason: PAIN SCALE 3 TO 5 Oxycodone/Acetaminophen (Percocet 5/325 Mg) 2 tab PO Q4H PRN PRN Reason: PAIN SCALE 6 TO 10 Senna/Docusate Sodium (Lata-Colace) 2 tab PO Q12H PRN PRN Reason: CONSTIPATION Simethicone (Mylicon Chew) 80 mg PO QID PRN PRN Reason: FLATULENCE Sodium Chloride (Ns Flush) 2 ml IV.FLUSH BID GREG Last Admin: 05/24/18 21:33 Dose: Not Given Sodium Chloride (Ns Flush) 2 ml IV.FLUSH PRN PRN PRN Reason: FLUSH AFTER USING IV ACCESS Assessment and Plan - Diagnosis (1) delivery due to maternal disorder, delivered, current hospitalization Code(s): O82 - Encounter for delivery without indication; O99.89 - Other specified diseases and conditions complicating , childbirth and the puerperium Status: Acute Plan: 27 year old who is POD# 1 s/p repeat CS. -Continue routine postoperative care. -Percocet and Motrin PRN pain. -Encouraged OOB. Advised pelvic rest for 6 wks. Will need a f/u appt. in 1 wk for incision check and BP check. -Re: ctrl, she would like to consider options, to include vasectomy for her . -Anticipate discharge 2-3 days. (2) Pre-eclampsia Code(s): O14.90 - Unspecified pre-eclampsia, unspecified trimester Status: Acute Plan: Patient presented with signs of severe pre-eclampsia and was admitted for management at 36/1 weeks gestation. She was delivered at 36/2 weeks due to persistently elevated BP despite IV magnesium and IV antihypertensives. She is status post uncomplicated section. -Continue Magnesium drip until 2:30p on 05/25. She required labetalol IV prior to delivery. -Monitor BP closely, q4hr until stable >24hr -Discussed with patient possibility of PO antihypertensives at discharge Clinical History: She was admitted after elevated outpatient BP (150/100) and 24hr urine protein ( =390) found on evaluation. At home, she was on aspirin 81mg daily since approximately 17 weeks gestation with outpatient BPs increasing over the last few weeks. Betamethasone x 1 05/23 Plan is as otherwise documented. Further planning pending clinical course. Patient was discussed with Dr. Roberts, OB attending (3) Gestational diabetes Code(s): O24.419 - Gestational diabetes mellitus in , unspecified control Status: Acute Plan: Diet controlled GDM noted. She is on clear liquids until completion of magnesium at 2:30pm, then can switch to appropriate diet. If AM CMP wnl, not indicated to check blood sugar at bedside but if abnormal would be indicated to monitor fasting and 2hr postprandial glucose levels. (4) Nutrition, metabolism, and development symptoms Code(s): R63.8 - Other symptoms and signs concerning food and fluid intake Status: Acute Plan: Fluids: per protocol. Intake and output adequate per pt, will monitor records. Electrolytes: Replete as needed Nutrition: NPO (2) Pre-eclampsia Qualifiers: Trimester: third trimester Qualified Code(s): O14.93 - Unspecified pre- eclampsia, third trimester (3) Gestational diabetes Qualifiers: Gestational diabetes mellitus control: diet-controlled Trimester: third trimester Qualified Code(s): O24.410 - Gestational diabetes mellitus in , diet controlled
[2018-05-25] MEDS: Mag Sulf/Water 40 gm/1000 ml 40 GM/1,000 ML BAG IV.CONT SCH (10:00)
[2018-05-25] MEDS: Labetalol 200 MG Tablet PO SCH ×2 (12:55→20:50)
[2018-05-25] MEDS ORDERED: Diphtheria/Tetanus/Pertussis Vaccine Inj 0.5 ML Syringe IM ONE (16:00)
[2018-05-25] MEDS ORDERED: Measles/Mumps/Rubella Vaccine Inj 0.5 ML Vial SQ ONE (16:00)
[2018-05-25] MEDS: Senna/Docusate Sodium 8.6/50 MG Tablet PO PRN (20:50)
--- NOTE | 2018-05-26 10:13 | P.PNOB ---
Subjective Post op day: 2 Interval history: 27 year old with a history of preeclampsia who is postoperative day 2 after repeat low-transverse C section. Afebrile overnight but hypertensive with blood pressures ranging from 170s systolic to high 150s systolic and is currently on labetalol as needed and has scheduled dose. Patient denies any visual changes, headaches, or dizziness. She reports she otherwise feels "normal". Patient is also status post magnesium drip and completed a course yesterday at 1430. Patient denies pain. Incision not draining. Denies dysuria. No nausea or vomiting, fevers, or chills. Ambulating well. Denies calf pain, shortness of breath, or chest pain. Otherwise, she is doing well this morning and has no other concerns. Objective Vital Signs/I&O: Vital Signs 05/25/18 10:10 05/25/18 10:15 05/25/18 10:20 Temperature Pulse Rate 85 91 H 85 Respiratory Rate Blood Pressure 157/90 H 05/25/18 10:55 05/25/18 11:00 05/25/18 11:05 Temperature Pulse Rate 88 78 Respiratory Rate 19 Blood Pressure 148/81 H 05/25/18 11:30 05/25/18 12:00 05/25/18 12:20 Temperature 97.9 F Pulse Rate 73 92 H 82 Respiratory Rate Blood Pressure 155/81 H 05/25/18 12:50 05/25/18 13:00 05/25/18 13:05 Temperature Pulse Rate 87 89 Respiratory Rate 18 Blood Pressure 151/91 H 05/25/18 13:15 05/25/18 13:20 05/25/18 13:40 Temperature Pulse Rate 100 H 86 84 Respiratory Rate Blood Pressure 05/25/18 14:02 05/25/18 14:47 05/25/18 15:01 Temperature Pulse Rate 81 77 Respiratory Rate 17 Blood Pressure 150/84 H 152/86 H 05/25/18 15:35 05/25/18 17:28 05/25/18 18:15 Temperature Pulse Rate 90 87 Respiratory Rate 18 16 Blood Pressure 154/89 H 163/88 H 158/83 H 05/25/18 20:00 05/26/18 00:00 05/26/18 04:00 Temperature 98.0 F 98.2 F 98.2 F Pulse Rate 76 96 H 101 H Respiratory Rate 20 20 22 Blood Pressure 145/76 H 140/72 170/91 H 05/26/18 05:00 05/26/18 05:54 05/26/18 07:40 Temperature 98.3 F Pulse Rate 91 H 76 97 H Respiratory Rate 18 18 Blood Pressure 162/79 H 157/80 H 163/96 H 05/26/18 07:55 05/26/18 08:05 05/26/18 08:06 Temperature 98.0 F Pulse Rate 87 Respiratory Rate 20 Blood Pressure 166/97 H 159/95 H 05/26/18 08:40 05/26/18 09:46 Temperature Pulse Rate Respiratory Rate Blood Pressure 176/86 H 164/92 H Intake & Output 05/25/18 05/26/18 05/26/18 18:59 06:59 18:59 Intake Total 1000 / 1000 Balance 1000 / 1000 Intake: IV 1000 / 1000 Magnesium Sulfate/Water 40 gm/ 1000 / 1000 1000 ml Premix 40 gm In 1,000 ml @ 2 GM/HR 50 mls/hr IV.CONT Q24H [facility] Rx#:[id number] Result Diagrams: 05/25/18 04:58 05/25/18 04:58 Objective Remarks: GENERAL: Well-nourished, morbidly obese, well-developed patient. CARDIOVASCULAR: Regular rate and rhythm without murmurs, gallops, or rubs. RESPIRATORY: Breath sounds equal bilaterally. No accessory muscle use. ABDOMEN/GI: Abdomen soft, non-tender, bowel sounds present. Incision: Clean, dry and intact. Fundus: Firm, non-tender at umbilicus. GENITOURINARY: Light to moderate bleeding. EXTREMITIES: No cyanosis or edema, non-tender, without signs of DVT. Medications and IVs: Active Medications Acetaminophen (Tylenol) 650 mg PO Q6H PRN PRN Reason: H/A Last Admin: 05/23/18 21:34 Dose: 650 mg Calcium Gluconate (Calcium Gluconate Inj) 1 gm IV.PUSH PRN PRN PRN Reason: Magnesium toxicity Citric Acid/Sodium Citrate (Sodium Citrate/Citric Acid Liq) 30 ml PO SCAFFOLDER [facility] Stop: 05/27/18 16:59 Last Admin: 05/24/18 12:43 Dose: 30 ml Citric Acid/Sodium Citrate (Sodium Citrate/Citric Acid Liq) 30 ml PO SCAFFOLDER [facility] Stop: 05/28/18 10:44 Cefazolin Sodium 2,000 mg/ (Sodium Chloride) 100 mls @ 200 mls/hr IV.SIG SCAFFOLDER [facility] Stop: 05/28/18 10:59 Ketorolac Tromethamine (Toradol Inj) 30 mg IM Q6H PRN PRN Reason: SEE LABEL COMMENTS Stop: 05/29/18 14:52 Labetalol HCl (Trandate) 300 mg PO BID [facility] Last Admin: 05/26/18 09:54 Dose: 300 mg Miscellaneous (Pill Splitter) 1 each OTHER UNSCH PRN PRN Reason: SEE LABEL COMMENTS Naloxone HCl (Narcan Inj) 0.1 mg IV.PUSH Q2M PRN PRN Reason: for opiate reversal Naloxone HCl (Narcan Inj) 0.4 mg IV.PUSH PRN PRN PRN Reason: Resp rate < 10 Ondansetron HCl (Zofran Inj) 4 mg IV.PUSH Q6H PRN PRN Reason: NAUSEA OR VOMITING Oxycodone/Acetaminophen (Percocet 5/325 Mg) 1 tab PO Q4H PRN PRN Reason: PAIN SCALE 3 TO 5 Oxycodone/Acetaminophen (Percocet 5/325 Mg) 2 tab PO Q4H PRN PRN Reason: PAIN SCALE 6 TO 10 Last Admin: 05/26/18 08:10 Dose: 2 tab Senna/Docusate Sodium (Lata-Colace) 2 tab PO Q12H PRN PRN Reason: CONSTIPATION Last Admin: 05/25/18 20:50 Dose: 2 tab Simethicone (Mylicon Chew) 80 mg PO QID PRN PRN Reason: FLATULENCE Sodium Chloride (Ns Flush) 2 ml IV.FLUSH BID [facility] Last Admin: 05/26/18 08:12 Dose: 2 ml Sodium Chloride (Ns Flush) 2 ml IV.FLUSH PRN PRN PRN Reason: FLUSH AFTER USING IV ACCESS Assessment and Plan - Diagnosis (1) delivery due to maternal disorder, delivered, current hospitalization Code(s): O82 - Encounter for delivery without indication; O99.89 - Other specified diseases and conditions complicating , childbirth and the puerperium Status: Acute Plan: 27 year old who is POD2 s/p repeat CS. -Continue routine postoperative care. -Percocet and Motrin PRN pain. -Encouraged OOB. Advised pelvic rest for 6 wks. Will need a f/u appt. in 1 wk for incision check and BP check. -Re: ctrl, she would like to consider options, to include vasectomy for her . -Anticipate discharge after blood pressure is well controlled in about 1-2 days. (2) Pre-eclampsia Code(s): O14.90 - Unspecified pre-eclampsia, unspecified trimester Status: Acute Plan: Patient presented with signs of severe pre-eclampsia and was admitted for management at 36/1 weeks gestation. She was delivered at 36/2 weeks due to persistently elevated BP despite IV magnesium and IV antihypertensives. She is status post uncomplicated section and her IV magnesium course has been completed as of yesterday. Patient still currently hypertensive with systolic blood pressures in the 170s overnight low systolic blood pressure was 157. -Continue labetalol 300 twice daily, and 40 as needed -Monitor BP closely, q4hr until stable >24hr -Discussed with patient possibility of PO antihypertensives at discharge Clinical History: She was admitted after elevated outpatient BP (150/100) and 24hr urine protein ( =390) found on evaluation. At home, she was on aspirin 81mg daily since approximately 17 weeks gestation with outpatient BPs increasing over the last few weeks. Plan is as otherwise documented. Further planning pending clinical course. Patient was discussed with Dr. Roberts, OB attending (3) Gestational diabetes Code(s): O24.419 - Gestational diabetes mellitus in , unspecified control Status: Acute Plan: Diet controlled GDM noted. Blood glucose level was found to be 140 yesterday morning patient to have 2 hour postprandial glucose checked. (4) Nutrition, metabolism, and development symptoms Code(s): R63.8 - Other symptoms and signs concerning food and fluid intake Status: Acute Plan: Fluids: per protocol. Intake and output adequate per pt, will monitor records. Electrolytes: Replete as needed Nutrition: Regular diet - Attending Attestation The exam, history, and the medical decision-making described in the above note were completed with the assistance of the resident physician. I reviewed and agree with the findings presented. I attest that I had a [id number] encounter with the patient on the same day, and personally performed and documented my assessment and findings in the medical record. (2) Pre-eclampsia Qualifiers: Trimester: third trimester Qualified Code(s): O14.93 - Unspecified pre- eclampsia, third trimester (3) Gestational diabetes Qualifiers: Gestational diabetes mellitus control: diet-controlled Trimester: third trimester Qualified Code(s): O24.410 - Gestational diabetes mellitus in , diet controlled
[2018-05-26] MEDS: Senna/Docusate Sodium 8.6/50 MG Tablet PO PRN (13:38)
[2018-05-26] MEDS: Ibuprofen 600 MG Tablet PO PRN (21:17)
[2018-05-27] MEDS ORDERED: Labetalol HCl Inj 100 MG/20 ML Vial IV.PUSH SCH (04:00)
[2018-05-27] MEDS ORDERED: hydrALAZINE 25 MG Tablet PO SCH ×2 (04:00→06:00)
--- NOTE | 2018-05-27 10:43 | P.PNOB ---
Subjective Interval history: 27 year old with a history of preeclampsia who is postoperative day 3 after repeat low-transverse C section. Afebrile overnight but hypertensive with blood pressures ranging from 190s systolic to high 150s systolic. Overnight patient received hydralazine 25 at 04 100 and then again at 0600 this morning. Despite elevated pressures patient has and continues to be asymptomatic, denying any headaches, dizziness, or changes in vision. Patient was previously on labetalol but has since been switched to hydralazine 50 every 8 hours. Last blood pressure at 9 this morning was 168/90. She reports she otherwise feels "normal". Patient is also status post magnesium trip to complete his course on 05/25. Patient denies pain. Incision not draining. Denies dysuria. No nausea or vomiting, fevers, or chills. Ambulating well. Denies calf pain, abdominal pain , right upper quadrant pain shortness of breath, or chest pain. Otherwise, she is doing well this morning and has no other concerns. Objective Vital Signs/I&O: Vital Signs 05/26/18 11:00 05/26/18 12:00 05/26/18 14:25 Temperature Pulse Rate 95 H Respiratory Rate Blood Pressure 166/90 H 168/90 H 158/86 H 05/26/18 16:19 05/26/18 19:48 05/27/18 00:00 Temperature 98.4 F 98.5 F Pulse Rate 90 90 96 H Respiratory Rate 18 18 Blood Pressure 156/79 H 159/81 H 143/72 H 05/27/18 03:47 05/27/18 04:49 05/27/18 08:00 Temperature 98.8 F 98.1 F Pulse Rate 96 H 96 H 103 H Respiratory Rate 18 18 Blood Pressure 191/90 H 157/80 H 159/87 H Result Diagrams: 05/25/18 04:58 05/25/18 04:58 Objective Remarks: GENERAL: Well-nourished, well-developed patient. CARDIOVASCULAR: Regular rate and rhythm without murmurs, gallops, or rubs. RESPIRATORY: Breath sounds equal bilaterally. No accessory muscle use. ABDOMEN/GI: Abdomen soft, non-tender, nontender and right upper quadrant, bowel sounds present. Incision: Clean, dry and intact. Fundus: Firm, non-tender at umbilicus. EXTREMITIES: No cyanosis or edema, non-tender, without signs of DVT. Medications and IVs: Active Medications Acetaminophen (Tylenol) 650 mg PO Q6H PRN PRN Reason: H/A Last Admin: 05/23/18 21:34 Dose: 650 mg Calcium Gluconate (Calcium Gluconate Inj) 1 gm IV.PUSH PRN PRN PRN Reason: Magnesium toxicity Citric Acid/Sodium Citrate (Sodium Citrate/Citric Acid Liq) 30 ml PO [employer] [facility] Stop: 05/27/18 16:59 Last Admin: 05/24/18 12:43 Dose: 30 ml Citric Acid/Sodium Citrate (Sodium Citrate/Citric Acid Liq) 30 ml PO [employer] [facility] Stop: 05/28/18 10:44 Hydralazine HCl (Apresoline) 50 mg PO Q8HR [facility] Cefazolin Sodium 2,000 mg/ (Sodium Chloride) 100 mls @ 200 mls/hr IV.SIG [employer] [facility] Stop: 05/28/18 10:59 Ibuprofen (Motrin) 600 mg PO Q6H PRN PRN Reason: CRAMPS Last Admin: 05/26/18 21:17 Dose: 600 mg Ketorolac Tromethamine (Toradol Inj) 30 mg IM Q6H PRN PRN Reason: SEE LABEL COMMENTS Stop: 05/29/18 14:52 Miscellaneous (Pill Splitter) 1 each OTHER UNSCH PRN PRN Reason: SEE LABEL COMMENTS Naloxone HCl (Narcan Inj) 0.1 mg IV.PUSH Q2M PRN PRN Reason: for opiate reversal Naloxone HCl (Narcan Inj) 0.4 mg IV.PUSH PRN PRN PRN Reason: Resp rate < 10 Ondansetron HCl (Zofran Inj) 4 mg IV.PUSH Q6H PRN PRN Reason: NAUSEA OR VOMITING Oxycodone/Acetaminophen (Percocet 5/325 Mg) 1 tab PO Q4H PRN PRN Reason: PAIN SCALE 3 TO 5 Oxycodone/Acetaminophen (Percocet 5/325 Mg) 2 tab PO Q4H PRN PRN Reason: PAIN SCALE 6 TO 10 Last Admin: 05/26/18 20:16 Dose: 2 tab Senna/Docusate Sodium (Lata-Colace) 2 tab PO Q12H PRN PRN Reason: CONSTIPATION Last Admin: 05/26/18 13:38 Dose: 2 tab Simethicone (Mylicon Chew) 80 mg PO QID PRN PRN Reason: FLATULENCE Sodium Chloride (Ns Flush) 2 ml IV.FLUSH BID [facility] Last Admin: 05/26/18 21:33 Dose: 2 ml Sodium Chloride (Ns Flush) 2 ml IV.FLUSH PRN PRN PRN Reason: FLUSH AFTER USING IV ACCESS Assessment and Plan - Diagnosis (1) Pre-eclampsia Code(s): O14.90 - Unspecified pre-eclampsia, unspecified trimester Status: Acute Plan: Patient presented with signs of severe pre-eclampsia and was admitted for management at 36/1 weeks gestation. She was delivered on 05/24/18 at 36/2 weeks due to persistently elevated BP despite IV magnesium and IV antihypertensives. She is status post uncomplicated section and her IV magnesium course has been completed as of 05/25. Patient still currently hypertensive with systolic blood pressures in the 190s overnight. Lowest systolic blood pressure was 143 at midnight. Patient previously on labetalol 300 3 times daily, now on hydralazine 50 every 8. Despite elevated pressures patient continues to be asymptomatic. If safe for breast-feeding , lisinopril may be considered due to the patient's diabetic status. -Hydralazine 50 every 8 hour -Consider lisinopril due to patient's diabetic status -Monitor BP closely, q4hr until stable >24hr -Discussed with patient possibility of PO antihypertensives at discharge Clinical History: She was admitted after elevated outpatient BP (150/100) and 24hr urine protein ( =390) found on evaluation. At home, she was on aspirin 81mg daily since approximately 17 weeks gestation with outpatient BPs increasing over the last few weeks. Plan is as otherwise documented. Further planning pending clinical course. Patient was discussed with Dr. Roberts, OB attending (2) delivery due to maternal disorder, delivered, current hospitalization Code(s): O82 - Encounter for delivery without indication; O99.89 - Other specified diseases and conditions complicating , childbirth and the puerperium Status: Acute Plan: 27 year old who is POD2 s/p repeat CS. Incision is clean, intact, and without signs of infection. -Continue routine postoperative care. -Motrin PRN pain. -Encouraged OOB. Advised pelvic rest for 6 wks. Will need a f/u appt. in 1 wk for incision check and BP check. -Re: ctrl, she would like to consider options, to include vasectomy for her . -Anticipate discharge after blood pressure is well controlled in about 1-2 days. (3) Gestational diabetes Code(s): O24.419 - Gestational diabetes mellitus in , unspecified control Status: Acute Plan: Diet controlled GDM noted. Blood glucose level was found to be 140 yesterday morning patient to have 2 hour postprandial glucose checked. (4) Nutrition, metabolism, and development symptoms Code(s): R63.8 - Other symptoms and signs concerning food and fluid intake Status: Acute Plan: Fluids: per protocol. Intake and output adequate per pt, will monitor records. Electrolytes: Replete as needed Nutrition: Regular diet (1) Pre-eclampsia Qualifiers: Trimester: third trimester Qualified Code(s): O14.93 - Unspecified pre- eclampsia, third trimester (3) Gestational diabetes Qualifiers: Gestational diabetes mellitus control: diet-controlled Trimester: third trimester Qualified Code(s): O24.410 - Gestational diabetes mellitus in , diet controlled
[2018-05-27] MEDS ORDERED: NIFEdipine 10 MG Capsule PO SCH (10:45)
[2018-05-27] MEDS: Ibuprofen 600 MG Tablet PO PRN ×2 (10:57→23:08)
[2018-05-27] MEDS: Senna/Docusate Sodium 8.6/50 MG Tablet PO PRN (10:58)
[2018-05-27] MEDS ORDERED: *Labetalol HCl Inj 100 MG/20 ML Vial PERIprocedural Use ONLY IV.PUSH ONE (12:56)
[2018-05-27] MEDS: hydrALAZINE 50 MG Tablet PO SCH ×2 (13:50→22:11)
[2018-05-27] MEDS ORDERED: Labetalol 200 MG Tablet PO ONE (18:00)
[2018-05-28] MEDS: hydrALAZINE 50 MG Tablet PO SCH ×2 (06:25→14:40)
[2018-05-28 08:00] VITALS: RESP 16
[2018-05-28 08:01] VITALS: TEMP 98
--- NOTE | 2018-05-28 09:19 | P.PNOB ---
Subjective Interval history: 27 year old with a history of preeclampsia who is postoperative day 4 after repeat low-transverse C section. Afebrile overnight but hypertensive with blood pressures ranging from low 140s systolic to high 160s systolic. Patient currently on labetalol 400 3 times daily and hydralazine 50 every 8 and tolerating it well. Patient's blood pressures continue to normalize despite elevated pressures patient has and continues to be asymptomatic, denying any headaches, dizziness, or changes in vision. Patient was previously on labetalol but has since been switched to hydralazine 50 every 8 hours. Last blood pressure at 9 this morning was 168/90. She reports she otherwise feels "normal". Patient is also status post magnesium trip to complete his course on 05/25. Patient denies pain. Incision not draining. Denies dysuria. No nausea or vomiting, fevers, or chills. Ambulating well. Denies calf pain, abdominal pain , right upper quadrant pain shortness of breath, or chest pain. Otherwise, she is doing well this morning and has no other concerns. Objective Vital Signs/I&O: Vital Signs 05/27/18 12:00 05/27/18 13:48 05/27/18 16:10 Temperature Pulse Rate 109 H 88 103 H Respiratory Rate 20 Blood Pressure 180/98 H 145/79 H 183/89 H 05/27/18 20:00 05/27/18 22:00 05/28/18 00:00 Temperature 98.6 F 98.3 F Pulse Rate 97 H 96 H 101 H Respiratory Rate 20 20 Blood Pressure 138/73 142/90 H 153/76 H 05/28/18 02:00 05/28/18 02:57 05/28/18 04:00 Temperature Pulse Rate 93 H 81 86 Respiratory Rate 18 19 Blood Pressure 167/88 H 142/74 H 147/87 H 05/28/18 06:17 05/28/18 07:59 Temperature 97.9 F 98.0 F Pulse Rate 89 101 H Respiratory Rate 20 16 Blood Pressure 140/83 149/81 H Result Diagrams: 05/25/18 04:58 05/25/18 04:58 Objective Remarks: GENERAL: Well-nourished, well-developed patient. CARDIOVASCULAR: Regular rate and rhythm without murmurs, gallops, or rubs. RESPIRATORY: Breath sounds equal bilaterally. No accessory muscle use. ABDOMEN/GI: Abdomen soft, non-tender, bowel sounds present. Incision: Clean, dry and intact. Fundus: Firm, non-tender at umbilicus. GENITOURINARY: Light to moderate bleeding. EXTREMITIES: No cyanosis or edema, non-tender, without signs of DVT. Medications and IVs: Active Medications Acetaminophen (Tylenol) 650 mg PO Q6H PRN PRN Reason: H/A Last Admin: 05/23/18 21:34 Dose: 650 mg Calcium Gluconate (Calcium Gluconate Inj) 1 gm IV.PUSH PRN PRN PRN Reason: Magnesium toxicity Citric Acid/Sodium Citrate (Sodium Citrate/Citric Acid Liq) 30 ml PO [employer] [facility] Stop: 05/28/18 10:44 Hydralazine HCl (Apresoline) 50 mg PO Q8HR [facility] Last Admin: 05/28/18 06:25 Dose: 50 mg Cefazolin Sodium 2,000 mg/ (Sodium Chloride) 100 mls @ 200 mls/hr IV.SIG [employer] [facility] Stop: 05/28/18 10:59 Ibuprofen (Motrin) 600 mg PO Q6H PRN PRN Reason: CRAMPS Last Admin: 05/27/18 23:08 Dose: 600 mg Ketorolac Tromethamine (Toradol Inj) 30 mg IM Q6H PRN PRN Reason: SEE LABEL COMMENTS Stop: 05/29/18 14:52 Labetalol HCl (Trandate) 400 mg PO TID [facility] Miscellaneous (Pill Splitter) 1 each OTHER UNSCH PRN PRN Reason: SEE LABEL COMMENTS Last Admin: 05/27/18 17:59 Dose: 1 each Naloxone HCl (Narcan Inj) 0.1 mg IV.PUSH Q2M PRN PRN Reason: for opiate reversal Naloxone HCl (Narcan Inj) 0.4 mg IV.PUSH PRN PRN PRN Reason: Resp rate < 10 Ondansetron HCl (Zofran Inj) 4 mg IV.PUSH Q6H PRN PRN Reason: NAUSEA OR VOMITING Oxycodone/Acetaminophen (Percocet 5/325 Mg) 1 tab PO Q4H PRN PRN Reason: PAIN SCALE 3 TO 5 Last Admin: 05/27/18 23:08 Dose: 1 tab Oxycodone/Acetaminophen (Percocet 5/325 Mg) 2 tab PO Q4H PRN PRN Reason: PAIN SCALE 6 TO 10 Last Admin: 05/27/18 10:57 Dose: 2 tab Senna/Docusate Sodium (Lata-Colace) 2 tab PO Q12H PRN PRN Reason: CONSTIPATION Last Admin: 05/27/18 10:58 Dose: 2 tab Simethicone (Mylicon Chew) 80 mg PO QID PRN PRN Reason: FLATULENCE Sodium Chloride (Ns Flush) 2 ml IV.FLUSH BID [facility] Last Admin: 05/28/18 03:23 Dose: 2 ml Sodium Chloride (Ns Flush) 2 ml IV.FLUSH PRN PRN PRN Reason: FLUSH AFTER USING IV ACCESS Last Admin: 05/27/18 13:22 Dose: 2 ml Assessment and Plan - Diagnosis (1) Pre-eclampsia Code(s): O14.90 - Unspecified pre-eclampsia, unspecified trimester Status: Acute Plan: Patient presented with signs of severe pre-eclampsia and was admitted for management at 36/1 weeks gestation. She was delivered on 05/24/18 at 36/2 weeks due to persistently elevated BP despite IV magnesium and IV antihypertensives. She is status post uncomplicated section and her IV magnesium course has been completed as of 05/25. Patient still currently hypertensive with systolic blood pressures in the 190s overnight. Lowest systolic blood pressure was 143 at midnight. Patient previously on labetalol 300 3 times daily, now on hydralazine 50 every 8. Despite elevated pressures patient continues to be asymptomatic. If safe for breast-feeding , lisinopril may be considered due to the patient's diabetic status. -Hydralazine 50 every 8 hour -Consider lisinopril due to patient's diabetic status -Monitor BP closely, q4hr until stable >24hr -Discussed with patient possibility of PO antihypertensives at discharge Clinical History: She was admitted after elevated outpatient BP (150/100) and 24hr urine protein ( =390) found on evaluation. At home, she was on aspirin 81mg daily since approximately 17 weeks gestation with outpatient BPs increasing over the last few weeks. Plan is as otherwise documented. Further planning pending clinical course. Patient was discussed with Dr. Roberts, OB attending (2) delivery due to maternal disorder, delivered, current hospitalization Code(s): O82 - Encounter for delivery without indication; O99.89 - Other specified diseases and conditions complicating , childbirth and the puerperium Status: Acute Plan: 27 year old who is POD2 s/p repeat CS. Incision is clean, intact, and without signs of infection. -Continue routine postoperative care. -Motrin PRN pain. -Encouraged OOB. Advised pelvic rest for 6 wks. Will need a f/u appt. in 1 wk for incision check and BP check. -Re: ctrl, she would like to consider options, to include vasectomy for her . -Anticipate discharge after blood pressure is well controlled in about 1-2 days. (3) Gestational diabetes Code(s): O24.419 - Gestational diabetes mellitus in , unspecified control Status: Acute Plan: Diet controlled GDM noted. Blood glucose level was found to be 140 yesterday morning patient to have 2 hour postprandial glucose checked. (4) Nutrition, metabolism, and development symptoms Code(s): R63.8 - Other symptoms and signs concerning food and fluid intake Status: Acute Plan: Fluids: per protocol. Intake and output adequate per pt, will monitor records. Electrolytes: Replete as needed Nutrition: Regular diet (1) Pre-eclampsia Qualifiers: Qualified Code(s): O14.93 - Unspecified pre-eclampsia, third trimester (3) Gestational diabetes Qualifiers: Qualified Code(s): O24.410 - Gestational diabetes mellitus in , diet controlled
--- NOTE | 2018-05-28 09:20 | P.PNOB ---
Subjective Post op day: 4 Interval history: 27 year old with a history of preeclampsia who is postoperative day 3 after repeat low-transverse C section. Afebrile, BP 140-150s/70s-80s this AM. Has been on hydralazine 50 mg TId since yesterday, labetalol 400 mg TID was added for greater control. Patient denies pain. Incision not draining. Denies dysuria. No nausea or vomiting, fevers, or chills. Ambulating well. Denies calf pain, abdominal pain, right upper quadrant pain shortness of breath, or chest pain. Otherwise, she is doing well this morning and has no other concerns. Objective Vital Signs/I&O: Vital Signs 05/27/18 12:00 05/27/18 13:48 05/27/18 16:10 Temperature Pulse Rate 109 H 88 103 H Respiratory Rate 20 Blood Pressure 180/98 H 145/79 H 183/89 H 05/27/18 20:00 05/27/18 22:00 05/28/18 00:00 Temperature 98.6 F 98.3 F Pulse Rate 97 H 96 H 101 H Respiratory Rate 20 20 Blood Pressure 138/73 142/90 H 153/76 H 05/28/18 02:00 05/28/18 02:57 05/28/18 04:00 Temperature Pulse Rate 93 H 81 86 Respiratory Rate 18 19 Blood Pressure 167/88 H 142/74 H 147/87 H 05/28/18 06:17 05/28/18 07:59 Temperature 97.9 F 98.0 F Pulse Rate 89 101 H Respiratory Rate 20 16 Blood Pressure 140/83 149/81 H Result Diagrams: 05/25/18 04:58 05/25/18 04:58 Objective Remarks: GENERAL: Well-nourished, well-developed patient. CARDIOVASCULAR: Regular rate and rhythm without murmurs, gallops, or rubs. RESPIRATORY: Breath sounds equal bilaterally. No accessory muscle use. ABDOMEN/GI: Abdomen soft, non-tender, bowel sounds present. Incision: Clean, dry and intact. Fundus: Firm, non-tender at umbilicus. GENITOURINARY: Light to moderate bleeding. EXTREMITIES: No cyanosis or edema, non-tender, without signs of DVT. 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 [facility] Stop: 05/28/18 10:59 Ibuprofen (Motrin) 600 mg PO Q6H PRN PRN Reason: CRAMPS Last Admin: 05/27/18 23:08 Dose: 600 mg Ketorolac Tromethamine (Toradol Inj) 30 mg IM Q6H PRN PRN Reason: SEE LABEL COMMENTS Stop: 05/29/18 14:52 Labetalol HCl (Trandate) 400 mg PO TID [facility] Miscellaneous (Pill Splitter) 1 each OTHER UNSCH PRN PRN Reason: SEE LABEL COMMENTS Last Admin: 05/27/18 17:59 Dose: 1 each Naloxone HCl (Narcan Inj) 0.1 mg IV.PUSH Q2M PRN PRN Reason: for opiate reversal Naloxone HCl (Narcan Inj) 0.4 mg IV.PUSH PRN PRN PRN Reason: Resp rate < 10 Ondansetron HCl (Zofran Inj) 4 mg IV.PUSH Q6H PRN PRN Reason: NAUSEA OR VOMITING Oxycodone/Acetaminophen (Percocet 5/325 Mg) 1 tab PO Q4H PRN PRN Reason: PAIN SCALE 3 TO 5 Last Admin: 05/27/18 23:08 Dose: 1 tab Oxycodone/Acetaminophen (Percocet 5/325 Mg) 2 tab PO Q4H PRN PRN Reason: PAIN SCALE 6 TO 10 Last Admin: 05/27/18 10:57 Dose: 2 tab Senna/Docusate Sodium (Lata-Colace) 2 tab PO Q12H PRN PRN Reason: CONSTIPATION Last Admin: 05/27/18 10:58 Dose: 2 tab Simethicone (Mylicon Chew) 80 mg PO QID PRN PRN Reason: FLATULENCE Sodium Chloride (Ns Flush) 2 ml IV.FLUSH BID GREG Last Admin: 05/28/18 03:23 Dose: 2 ml Sodium Chloride (Ns Flush) 2 ml IV.FLUSH PRN PRN PRN Reason: FLUSH AFTER USING IV ACCESS Last Admin: 05/27/18 13:22 Dose: 2 ml Assessment and Plan - Diagnosis (1) Pre-eclampsia Code(s): O14.90 - Unspecified pre-eclampsia, unspecified trimester Status: Acute Plan: - BP is better controlled <160s/90s -Hydralazine 50 TID and labetalol 400 mg TID on DC for BP control - F/u w/ PCP for further BP management (2) delivery due to maternal disorder, delivered, current hospitalization Code(s): O82 - Encounter for delivery without indication; O99.89 - Other specified diseases and conditions complicating , childbirth and the puerperium Status: Acute Plan: 27 year old who is POD2 s/p repeat CS. Incision is clean, intact, and without signs of infection. -Continue routine postoperative care. -Motrin PRN pain. -Encouraged OOB. Advised pelvic rest for 5 wks. Will need a f/u appt. in 2 days for incision check and BP check. -Re: ctrl, she would like to consider options -DC today (3) Gestational diabetes Code(s): O24.419 - Gestational diabetes mellitus in , unspecified control Status: Acute Plan: Stable. Diet controlled GDM noted. F/u OP for further management - Plan Discussed w/ Dr. Dey (1) Pre-eclampsia Qualifiers: Trimester: third trimester Qualified Code(s): O14.93 - Unspecified pre- eclampsia, third trimester (3) Gestational diabetes Qualifiers: Gestational diabetes mellitus control: diet-controlled Trimester: third trimester Qualified Code(s): O24.410 - Gestational diabetes mellitus in , diet controlled
[2018-05-28] MEDS: Labetalol 200 MG Tablet PO SCH ×2 (09:22→13:56)
[2018-05-28 11:29] VITALS: BP 140/74; PULSE 114
== END 2018-05-28 16:19 | disposition home or self-care (01) ==
LOC: HOBED 15:58 → H2E 17:05 → H1EA 05-25 16:56
PROVIDERS: ADMIT Obstetrics & Gynecology; ATTEND Obstetrics & Gynecology